=== PATIENT | male | born 1985 | race Caucasian/White ===

== ENCOUNTER → 2020-01-29 | Outpatient (CLI) | payer OTHER ==
[~2020-01-29] MED LIST: CYCL10 PO; EFFEXOR; OLAN5; WELLBUTRIN
[2020-01-31 13:09] LABS: CHLAMYDIA BY NAA Negative (Negative); GONOCOCCUS BY NAA Negative (Negative); TRICH VAG BY NAA Negative (Negative)
== END | disposition home or self-care (01) ==
LOC: LAB EV 09:19 → LAB SHORT 09:19
PROVIDERS: General Practice
DX: Z20.2 Contact with and (suspected) exposure to infections with a predominantly sexual mode of transmission (principal)
CPT/HCPCS: 87086; 87491; 87591; 87661

== ENCOUNTER 2022-06-19 06:05 | Day surgery (SDC) | payer OTHER ==
[~2022-06-19] VITALS: Ht 180.3 cm; Wt 110.2 kg
[~2022-06-19 06:05] MED LIST changes: +ABILIFY MYCITE5 M2 PO; +ALBU90OI INH; +AMOCLA875 PO; +BUPR100 PO; +CLON.5 PO; +LANS30EC PO; +Lisinopril-Hct1 EAC4 PO; +OXCARBAZEPINE PO; +VENL75ER PO
--- NOTE | 2022-06-19 07:11 | NUR ---
Patient up to Ambulate independently. Gait steady. Surgical site prepped with 2% Chlorhexidine cloth wipe. History, Chart, Medications and Allergies reviewed before start of procedure.Lungs clear T/O to Auscultation. Patient confirms NPO status and agrees with scheduled surgery. Pre-Op teaching done. Pt verbalizes understanding.
--- NOTE | 2022-06-19 07:58 | NUR ---
06/19/22 0758 ANIA JADE NOTED RED CUTS ON PT ABD PRIOR TO PROCEDURE.
--- NOTE | 2022-06-19 09:51 | NUR ---
DISCHARGE SUMMARY PT A&OX4, VSS/RA, PAIN 5/10 TREATED WITH NORCO 5MG, LES PO/MILD NAUSEA TX'D BEFORE DEPART WITH ZOFRAN, DRESSED SELF, IV DC'D. ASSISTED WITH ABD BINDER. DC INS PROVIDED. PT REP UNDERSTANDING THOSE INSTRUCTIONS. LEFT FLOOR VIA WC WITH DC VOL TO GO HOME WITH MATA/PEN RIDER, WITH ALL PERSONAL POSSESSIONS INCLUDING GLASSES, DC PACKET, NORCO SCRIPT AND WORKNOTE.
== END 2022-06-19 09:45 | disposition home or self-care (01) ==
LOC: ORSCMMR 06:05 → ORD 07:30 → ORSCMMR 09:00
PROVIDERS: Surgery
PROC: 0WQF0ZZ Repair Abdominal Wall, Open Approach (ICD-10-PCS; principal; 2022-06-19 07:30)
DX: K42.9 Umbilical hernia without obstruction or gangrene (principal); L72.8 Other follicular cysts of the skin and subcutaneous tissue; I10 Essential (primary) hypertension; G47.33 Obstructive sleep apnea (adult) (pediatric); Z87.891 Personal history of nicotine dependence; J44.9 Chronic obstructive pulmonary disease, unspecified; Z79.899 Other long term (current) drug therapy; K21.9 Gastro-esophageal reflux disease without esophagitis; E66.9 Obesity, unspecified; Z68.33 Body mass index [BMI] 33.0-33.9, adult
CPT/HCPCS: 88304; A9270; J0690; J1100; J1885; J2250; J2405; J2704; J2795; J3010; J7120

== ENCOUNTER 2023-03-08 07:47 | Emergency (ER) | payer OTHER ==
[~2023-03-08] VITALS: Ht 182.9 cm; Wt 129.3 kg
[2023-03-08 10:23] VITALS: BP 144/95
== END 2023-03-08 10:25 | disposition home or self-care (01) ==
LOC: ER 07:47
DX: M25.562 Pain in left knee (principal); M79.89 Other specified soft tissue disorders; Z79.899 Other long term (current) drug therapy; Z88.6 Allergy status to analgesic agent; W11.XXXA Fall on and from ladder, initial encounter
CPT/HCPCS: 99283